=== PATIENT | female | born 1985 | race Two or more races ===

== ENCOUNTER 2017-01-10 16:30 | Outpatient (CLI) ==
[2013-11-15 09:06] VITALS: BMI 22.3
== END 2017-01-10 16:31 | disposition home or self-care (01) ==
LOC: LAB 16:30
PROVIDERS: ATTEND Internal Medicine Hematology & Oncology
DX: Z00.5 Encounter for examination of potential donor of organ and tissue (principal)
CPT/HCPCS: 36415

== ENCOUNTER 2017-02-03 16:30 | Outpatient (CLI) ==
[2013-11-15 09:06] VITALS: BMI 22.3
== END 2017-02-03 16:31 | disposition home or self-care (01) ==
LOC: LAB 16:30
DX: Z00.5 Encounter for examination of potential donor of organ and tissue (principal)
CPT/HCPCS: 36415

== ENCOUNTER 2017-12-24 11:24 | Emergency (ER) ==
[2017-12-24] MEDS ORDERED: BOOSTRIX IM ONE (11:41)
[2017-12-24 12:19] VITALS: BP 109/72; TEMP 97.8; BMI 24.0
--- NOTE | 2017-12-24 12:25 | ED.PDOC ---
General ED Provider: Dr. BINH FUENTES Chief Complaint: Finger Pain/Injury Stated Complaint: Reports that she smashed ther right thumb on the door at work. Had some minimal bleeding which has stopped . She is still able to move the finger. Time Seen by Physician: 11:45 Mode of Arrival: Walk-In Information Source: Patient Exam Limitations: No limitations Nursing and Triage Documentation Reviewed and Agree: Yes Does patient meet sepsis criteria?: No System Inflammatory Response Syndrome: Not Applicable Sepsis Protocol: For patient's 13 years and over: Temp is 96.8 and below OR 101 and greater Pulse >90 BPM Resp >20/minute Acutely Altered Mental Status Are patient's symptoms suggestive of a new infection, such as: -Pneumonia -Skin, Soft Tissue -Endocarditis -UTI -Bone, Joint Infection -Implantable Device -Acute Abdominal Infection -Wound Infection -Meningitis -Blood Stream Catheter Infection -Unknown Review of Systems - Review Of Systems Constitutional: Reports: No symptoms Eyes: Reports: No symptoms Ears, Nose, Mouth, Throat: Reports: No symptoms Respiratory: Reports: No symptoms Cardiac: Reports: No symptoms GI: Reports: No symptoms : Reports: No symptoms Musculoskeletal: Reports: Joint pain (Finger pain right Thumb ) Skin: Reports: No symptoms Neurological: Reports: No symptoms Endocrine: Reports: No symptoms Hematologic/Lymphatic: Reports: No symptoms All Other Systems: Reviewed and Negative Past Medical History - Past Medical History Previously Healthy: Yes Endocrine: Reports: None Cardiovascular: Reports: None Respiratory: Reports: None Hematological: Reports: None Gastrointestinal: Reports: None Genitourinary: Reports: None Neuro/Psych: Reports: None Musculoskeletal: Reports: None Cancer: Reports: None Last Menstrual Period: first of december - Surgical History General Surgical History: Reports: Unknown - Family History Family History: Reports: Unknown - Social History Smoking Status: Current some day smoker, Light tobacco smoker Hx Substance Use: No Alcohol Screening: None - Immunizations Tetanus Shot up to Date: No Physical Exam - Physical Exam Appearance: Well-appearing Pain Distress: Mild Musculoskeletal: ROM intact Skin: Warm, Dry Neurological: Sensation intact, Motor intact Interpretation - Radiology Interpretation Radiology Interpretation By: ED Physician Radiology Results: Negative Exam Interpreted: Other (Right thumb) Critical Care Note - Critical Care Note Total Time (mins): 0 Course - Course Orders, Labs, Meds: Orders Category Date Time Status Wound care [ED WOUND CARE] .ONCE EMERGENCY 12/24/17 11:42 Active Diphth,Pertuss(Acell),Tet Vac [Boostrix] MEDS 12/24/17 11:41 Discontinued 0.5 ml IM .ONCE ONE FINGER(S) RIGHT MIN 2V Stat RADS 12/24/17 11:42 Completed Medications Discontinued Medications Generic Name Dose Route Start Last Admin Trade Name Freq PRN Reason Stop Dose Admin Diphtheria/Pertussis/Tetanus Vacc 0.5 ml 12/24/17 11:41 12/24/17 12:23 Boostrix IM 12/24/17 11:42 0.5 ml .ONCE ONE Administration Vital Signs: Temp Pulse Resp BP Pulse Ox 12/24/17 12:15 97.8 F 62 18 109/72 99 Departure - Departure Time of Disposition: 12:24 Disposition: HOME SELF-CARE Discharge Problem: Injury of finger Instructions: Tetanus Immune Globulin (By injection), Jammed Finger (ED), Crush Injury (ED) Condition: Stable Pt referred to PMD for follow-up: Yes IPMP verified?: No Additional Instructions: Keep area clean and dry Apply Antibiotic cream to the wound Keep it covered. Allergies/Adverse Reactions: Allergies No Known Allergies Allergy (Verified 12/24/17 12:20) Home Medications: Ambulatory Orders 1 [No Reported Medications] 09/23/13 Disposition Discussed With: Patient
--- NOTE | 2017-12-24 13:36 | DI ---
Exam: Three views of the right fingers. Comparison: None available. Reason for exam: Right thumb trauma. FINDINGS: No acute fracture or dislocation. The cortices are intact. The joint spaces well [place] kyra. No unexplained calcific soft tissue density or radiopaque retained foreign body. Impression: No acute fracture or dislocation in the right thumb
== END 2017-12-24 12:48 | disposition home or self-care (01) ==
LOC: ED 11:24
DX: S69.91XA Unspecified injury of right wrist, hand and finger(s), initial encounter (principal); W23.0XXA Caught, crushed, jammed, or pinched between moving objects, initial encounter; F17.210 Nicotine dependence, cigarettes, uncomplicated
CPT/HCPCS: 90471; 90715; 99283

== ENCOUNTER 2018-08-18 19:46 | Emergency (ER) | payer OTHER ==
[2018-08-18 19:53] VITALS: BP 118/77; TEMP 99.6; BMI 24.8
[2018-08-18] MEDS ORDERED: MORPHINE 2 MG/ML SYRINGE IM STA ×2 (19:59→21:00)
[2018-08-18] MEDS ORDERED: PHENERGAN 25 MG/ML VIAL IM STA (19:59)
[2018-08-18] MEDS ORDERED: GI COCKTAIL PO STA (20:00)
--- NOTE | 2018-08-18 21:04 | CT ---
EXAM: CT scan abdomen pelvis without contrast HISTORY: Upper abdominal pain COMPARISON: None. FINDINGS: Tenuous axial images obtained through the abdomen pelvis without contrast utilizing 3-mm c ollimation. Sagittal and coronal reconstructions were imaged and reviewed.. Visualized lung base ar e clear. The gallbladder is fluid filled without high lithiasis. The liver, pancreas, spleen and ad renal glands have normal unenhanced CT appearance. The kidneys are morphologically normal. There is a right adnexal cyst measuring 3.7 x 3.0 cm. There is a small amount of free fluid in the dependent pelvis. There is no CT evidence of appendicitis. There is a small fat-containing umbilical hernia.. Bone windows reveals no evidence of lytic or blastic lesions. IMPRESSION: No acute intra-abdominal findings. Right adnexal cyst with small amount free fluid.
[2018-08-18] MEDS ORDERED: MORPHINE 2 MG/ML SYRINGE ONE (21:13)
--- NOTE | 2018-08-18 21:33 | ED.PDOC ---
General ED Provider: Dr. NATALIE DEUTSCH-ER Chief Complaint: Abdominal Pain Stated Complaint: im hurting Time Seen by Physician: 19:50 Mode of Arrival: Walk-In Information Source: Patient Exam Limitations: No limitations Nursing and Triage Documentation Reviewed and Agree: Yes Does patient meet sepsis criteria?: No System Inflammatory Response Syndrome: Not Applicable Sepsis Protocol: For patient's 13 years and over: Temp is 96.8 and below OR 101 and greater Pulse >90 BPM Resp >20/minute Acutely Altered Mental Status Are patient's symptoms suggestive of a new infection, such as: -Pneumonia -Skin, Soft Tissue -Endocarditis -UTI -Bone, Joint Infection -Implantable Device -Acute Abdominal Infection -Wound Infection -Meningitis -Blood Stream Catheter Infection -Unknown GI Complaint Exam - Abdominal Pain Complaint/Exam Onset: Gradual Duration: 8hrs Symptoms Are: Still present Timing: Constant Initial Severity: Mild Current Severity: Moderate Location of Pain: Discrete, Epigastric Character: Reports: Dull, Aching Alleviating: Reports: None Associated Signs and Symptoms: Denies: Diaphoresis, Fever, Cough, Chest pain, Dizziness, Back pain, Constipation, Blood in stool, Dysuria, Urinary frequency, Decreased urine output, Decreased appetite, Vaginal bleeding, Vaginal discharge , Nausea, Vomiting, Diarrhea, Sore throat, Decreased activity Patient Rh Status: Unknown Abdominal Findings: Present: None Differential Diagnoses: Pancreatitis Quality Indicator For Non-Traumatic Chest Pain/Syncope: EKG Performed Review of Systems - Review Of Systems Constitutional: Reports: No symptoms Eyes: Reports: No symptoms Ears, Nose, Mouth, Throat: Reports: No symptoms Respiratory: Reports: No symptoms Cardiac: Reports: No symptoms GI: Reports: Abdominal pain, Nausea : Reports: No symptoms Musculoskeletal: Reports: No symptoms Skin: Reports: No symptoms Neurological: Reports: No symptoms Endocrine: Reports: No symptoms Hematologic/Lymphatic: Reports: No symptoms All Other Systems: Reviewed and Negative Past Medical History - Past Medical History Previously Healthy: Yes Endocrine: Reports: None Cardiovascular: Reports: None Respiratory: Reports: None Hematological: Reports: None Gastrointestinal: Reports: None Genitourinary: Reports: None Neuro/Psych: Reports: None Musculoskeletal: Reports: None Cancer: Reports: None Last Menstrual Period: end july - Surgical History General Surgical History: Reports: Unknown - Family History Family History: Reports: Unknown - Social History Smoking Status: Current some day smoker, Light tobacco smoker Hx Substance Use: No Alcohol Screening: None Physical Exam - Physical Exam Appearance: Well-appearing, No pain distress, Well-nourished Eyes: HALLIE ENT: Ears normal, Nose normal, Oropharynx normal Neck: Supple Respiratory: Airway patent, Breath sounds clear, Breath sounds equal, Respirations nonlabored Cardiovascular: RRR, Pulses normal, No rub, No murmur GI/: Soft, No masses, Bowel sounds normal, No Organomegaly, Tender Musculoskeletal: Normal strength Skin: Warm Neurological: Sensation intact, Motor intact, Reflexes intact, Cranial nerves intact, Alert, Oriented Psychiatric: Affect appropriate, Mood appropriate Interpretation - Radiology Interpretation Radiology Interpretation By: Radiologist Radiology Results: Negative Exam Interpreted: CT Scan - EKG Interpretation Time of EKG #1: 21:33 Rate: Tachy Rhythm: Sinus Ectopy: None Murphy: NL ST Segment: Normal Interpretation: nsr Re-Evaluation - Re-Evaluation Time of Re-Evaluation: 21:48 Status: Improved Vital Signs Stable: Yes Pain Level: 0 Appearance: NAD Lungs: Clear Skin: Warm and Dry Neuro: Alert and Oriented X3 CV: RRR Critical Care Note - Critical Care Note Total Time (mins): 0 Course - Course Hematology/Chemistry: 08/18/18 20:05 08/18/18 20:05 Orders, Labs, Meds: Lab Review 08/18/18 08/18/18 08/18/18 20:05 20:05 20:05 WBC 21.27 H RBC 4.28 Hgb 12.7 Hct 36.8 L MCV 86.0 MCH 29.7 MCHC 34.5 RDW Coeff of Taylor 12.3 Plt Count 260 Immature Gran % (Auto) 0.4 Neut % (Auto) 80.5 Lymph % (Auto) 12.6 Delta % (Auto) 6.2 Eos % (Auto) 0.1 Baso % (Auto) 0.2 Immature Gran # (Auto) 0.1 Neut # (Auto) 17.1 H Lymph # (Auto) 2.7 Delta # (Auto) 1.3 Eos # (Auto) 0.0 Baso # (Auto) 0.1 ESR 20 Sodium 138.6 Potassium 3.69 Chloride 102.7 Carbon Dioxide 22.4 Anion Gap 17.19 BUN 9.5 Creatinine 0.37 L Estimated GFR (MDRD) 204.00 BUN/Creatinine Ratio 25.67 Glucose 87.5 Calcium 9.92 Total Bilirubin 0.97 AST 26.3 ALT 23.4 Alkaline Phosphatase 95.1 Total Creatine Kinase 41.6 Troponin I < 0.012 Total Protein 7.30 Albumin 4.15 Globulin 3.15 Albumin/Globulin Ratio 1.31 Amylase 33.4 Lipase 83.4 Serum , Qual Negative Urine Color Urine Clarity Urine pH Ur Specific [place] Urine Protein Urine Glucose (UA) Urine Ketones Urine Blood Urine Nitrite Urine Bilirubin Urine Urobilinogen Ur Leukocyte Esterase Urine Microscopic RBC Urine Microscopic WBC Ur Squamous Epith Cells Urine Bacteria Urine Mucus 08/18/18 21:25 WBC RBC Hgb Hct MCV MCH MCHC RDW Coeff of Taylor Plt Count Immature Gran % (Auto) Neut % (Auto) Lymph % (Auto) Delta % (Auto) Eos % (Auto) Baso % (Auto) Immature Gran # (Auto) Neut # (Auto) Lymph # (Auto) Delta # (Auto) Eos # (Auto) Baso # (Auto) ESR Sodium Potassium Chloride Carbon Dioxide Anion Gap BUN Creatinine Estimated GFR (MDRD) BUN/Creatinine Ratio Glucose Calcium Total Bilirubin AST ALT Alkaline Phosphatase Total Creatine Kinase Troponin I Total Protein Albumin Globulin Albumin/Globulin Ratio Amylase Lipase Serum , Qual Urine Color Yellow Urine Clarity Cloudy Urine pH 5.5 Ur Specific [place] >=1.030 Urine Protein Negative Urine Glucose (UA) Negative Urine Ketones 4+ Urine Blood 2+ Urine Nitrite Negative Urine Bilirubin Negative Urine Urobilinogen 0.2 Ur Leukocyte Esterase Negative Urine Microscopic RBC 5-10 Urine Microscopic WBC 2-5 Ur Squamous Epith Cells 2-5 Urine Bacteria Trace Urine Mucus 2+ Orders Category Date Time Status EKG-(ED ONLY) Stat CARDIO 08/18/18 19:57 Completed AMYLASE Stat LAB 08/18/18 20:05 Completed CBC W/ AUTO DIFF Stat LAB 08/18/18 20:05 Completed COMPREHENSIVE METABOLIC PANEL Stat LAB 08/18/18 20:05 Completed CREATINE KINASE Stat LAB 08/18/18 20:05 Completed ESR Stat LAB 08/18/18 20:05 Completed LIPASE Stat LAB 08/18/18 20:05 Completed SERUM Stat LAB 08/18/18 20:05 Completed TROPONIN I Stat LAB 08/18/18 20:05 Completed URINALYSIS C & S IF INDICATED Stat LAB 08/18/18 21:25 Completed Mag-Al Plus//Lidocaine [Gi Cocktail] MEDS 08/18/18 20:00 Discontinued 30 ml PO ONCE STA Morphine Sulfate [Morphine 2 mg/ml Syringe] MEDS 08/18/18 21:13 Discontinued 2 mg .ROUTE .STK-MED ONE Morphine Sulfate [Morphine 2 mg/ml Syringe] MEDS 08/18/18 19:59 Discontinued 4 mg IM ONCE STA Promethazine HCl [Phenergan 25 mg/ml Vial] MEDS 08/18/18 19:59 Discontinued 25 mg IM ONCE STA CT ABDOMEN/PELVIS WO CONTRAST Stat RADS 08/18/18 20:01 Completed Medications Discontinued Medications Generic Name Dose Route Start Last Admin Trade Name Doni PRN Reason Stop Dose Admin Al Hydroxide/Mg Hydroxide 30 ml 08/18/18 20:00 08/18/18 20:27 Gi Cocktail PO 08/18/18 20:01 30 ml ONCE STA Administration Morphine Sulfate 4 mg 08/18/18 19:59 08/18/18 20:26 Morphine 2 Mg/Ml Syringe IM 08/18/18 20:00 2 mg ONCE STA Administration Promethazine HCl 25 mg 08/18/18 19:59 08/18/18 20:25 Phenergan 25 Mg/Ml Vial IM 08/18/18 20:00 25 mg ONCE STA Administration Vital Signs: Temp Pulse Resp BP Pulse Ox 08/18/18 19:47 99.6 F 127 H 20 118/77 98 Departure - Departure Time of Disposition: 21:48 Disposition: HOME SELF-CARE Discharge Problem: Abdominal pain Instructions: Acute Abdominal Pain (ED) Condition: Good Pt referred to PMD for follow-up: Yes IPMP verified?: No Additional Instructions: low fat diet---bentyl 10mg qid prn pain#288---zantac 150mg #30---f/u [facility] ---consider outpatient gb xrayss Allergies/Adverse Reactions: Allergies No Known Allergies Allergy (Verified 08/18/18 19:53) Home Medications: Ambulatory Orders 1 [No Reported Medications] 09/23/13 Disposition Discussed With: Patient
== END 2018-08-18 21:55 | disposition home or self-care (01) ==
LOC: ED 19:46
DX: R10.9 Unspecified abdominal pain (principal); F17.210 Nicotine dependence, cigarettes, uncomplicated
CPT/HCPCS: 36415; 80053; 81001; 82150; 82550; 83690; 84484; 84703; 85025; 85651; 93005; 93010; 96372; 99283

== ENCOUNTER 2018-08-23 16:23 | Outpatient (CLI) | END 2018-08-23 16:24 | disposition home or self-care (01) | LOC: CAR 16:23 | PROVIDERS: ATTEND Nurse Practitioner Family | DX: R00.2 Palpitations (principal); E05.90 Thyrotoxicosis, unspecified without thyrotoxic crisis or storm; R10.13 Epigastric pain; R68.89 Other general symptoms and signs; G25.2 Other specified forms of tremor; R82.4 Acetonuria | CPT/HCPCS: 36415; 80053; 80306; 81001; 81025; 83735; 83970; 84439; 84443; 84480; 85025; 85651; 93005; 93010 ==

== ENCOUNTER 2018-08-23 16:25 | Outpatient (CLI) ==
[2018-08-23 16:51] LABS: URINE PREGNANCY TEST NEGATIVE (NEGATIVE)
== END 2018-08-23 16:26 | disposition home or self-care (01) ==
LOC: RHC-LAB 16:25 → FCC-LAB 16:26
PROVIDERS: ATTEND Nurse Practitioner Family
DX: E05.90 Thyrotoxicosis, unspecified without thyrotoxic crisis or storm (principal); R00.2 Palpitations; R10.13 Epigastric pain; R68.89 Other general symptoms and signs; G25.2 Other specified forms of tremor; R82.4 Acetonuria
CPT/HCPCS: 36415; 80053; 80306; 81001; 81025; 83735; 83970; 84439; 84443; 84480; 85025; 85651

== ENCOUNTER 2018-10-11 10:31 | Outpatient (CLI) ==
--- NOTE | 2018-10-11 11:06 | US ---
EXAM: Thyroid ultrasound History: Thyrotoxicosis Technique: Multiple sonographic images through the thyroid gland were obtained. Color duplex Dopple r was used to interrogate vascular flow. Findings: The right lobe of the thyroid measures 5.6 cm x 7.3 cm x 1.9 cm and demonstrates heterogeneous echote xture without discrete nodule identified. The thyroid isthmus measures 0.5 cm in thickness. The left lobe of the thyroid measures 6.3 cm x 2.0 cm x 1.8 cm and demonstrates heterogeneous echotex ture without discrete nodule identified. No extrathyroidal masses are identified. There is marked increased vascularity of the thyroid gland. Impression: 1. Enlarged heterogeneous thyroid gland with marked hypervascularity. Differential diagnosis includ es thyroiditis or Graves disease. 2. No discrete thyroid nodules
== END 2018-10-11 10:32 | disposition home or self-care (01) ==
LOC: RAD 10:31
PROVIDERS: ATTEND Nurse Practitioner
DX: E05.00 Thyrotoxicosis with diffuse goiter without thyrotoxic crisis or storm (principal)

== ENCOUNTER 2018-11-15 15:30 | Outpatient (CLI) | END 2018-11-15 15:31 | disposition home or self-care (01) | LOC: LAB 15:30 | PROVIDERS: ATTEND Nurse Practitioner | DX: E05.00 Thyrotoxicosis with diffuse goiter without thyrotoxic crisis or storm (principal) | CPT/HCPCS: 36415; 84439; 84443; 84480; 86376 ==

== ENCOUNTER 2019-01-29 19:40 | Emergency (ER) ==
[2019-01-29 19:43] VITALS: BP 128/72; TEMP 98.9; BMI 27.6
[2019-01-29] MEDS ORDERED: PROTONIX IV IVP STA (19:46)
[2019-01-29] MEDS ORDERED: LACTATED RINGERS 1,000 ML IV STA (19:46)
[2019-01-29] MEDS ORDERED: ZOFRAN 4 MG/2 ML IVP STA (19:47)
[2019-01-29] MEDS ORDERED: MORPHINE 4 MG/ML SYRINGE IVP STA (19:58)
--- NOTE | 2019-01-29 20:28 | ED.PDOC ---
General ED Provider: Dr. BINH FUENTES Chief Complaint: Abdominal Pain Stated Complaint: Patient is a 33 year old female who comes to the ER with right abdominal pain that started at 230 pm 2 hours after she had eaten. States that the pain is aching and pressure like. Rates it at 7/10 with associated nausea but no vomiting. Denies any fever or chills. Has a histor of ovarian cyst on the right diagnosed in jul 2018 Time Seen by Physician: 20:00 Mode of Arrival: Walk-In Information Source: Patient Exam Limitations: No limitations Primary Care Provider: MAI WOODY Nursing and Triage Documentation Reviewed and Agree: Yes Does patient meet sepsis criteria?: No System Inflammatory Response Syndrome: Not Applicable Sepsis Protocol: For patient's 13 years and over: Temp is 96.8 and below OR 101 and greater Pulse >90 BPM Resp >20/minute Acutely Altered Mental Status Are patient's symptoms suggestive of a new infection, such as: -Pneumonia -Skin, Soft Tissue -Endocarditis -UTI -Bone, Joint Infection -Implantable Device -Acute Abdominal Infection -Wound Infection -Meningitis -Blood Stream Catheter Infection -Unknown GI Complaint Exam - Abdominal Pain Complaint/Exam Onset: Sudden Duration: 5 hours Symptoms Are: Still present Timing: Constant Initial Severity: Moderate Current Severity: Severe Location of Pain: RUQ, RLQ Radiates To: Denies: Chest, Back, Flank, LLQ, RLQ, Inguinal Character: Reports: Aching Aggravating: Reports: Movement, Food Alleviating: Reports: None Associated Signs and Symptoms: Reports: Nausea. Denies: Diaphoresis, Fever, Cough, Chest pain, Dizziness, Back pain, Constipation, Blood in stool, Dysuria, Urinary frequency, Decreased urine output, Decreased appetite, Vaginal bleeding , Vaginal discharge, Vomiting, Diarrhea, Sore throat, Decreased activity AAA Risk Factors: Reports: None Cardiac Risk Factors: Reports: None Ectopic Risk Factors: Reports: None Ovarian Torsion Risk Factors: Reports: Ovarian cysts Surgical Obstruction Risk Factors: Reports: Colicky abdominal pain Related Surgical History: Reports: None Patient Rh Status: Unknown Abdominal Findings: Present: Other (severe Tenderness to the right lower quadrant ) Differential Diagnoses: Appendicitis, Constipation, UTI, Ovarian Cyst Review of Systems - Review Of Systems Constitutional: Reports: No symptoms Eyes: Reports: No symptoms Respiratory: Reports: No symptoms Cardiac: Reports: No symptoms GI: Reports: Abdominal pain, Nausea : Reports: No symptoms Musculoskeletal: Reports: No symptoms Skin: Reports: No symptoms Neurological: Reports: Anxiety All Other Systems: Reviewed and Negative Past Medical History - Past Medical History Previously Healthy: Yes Endocrine: Reports: Hyperthyroid Cardiovascular: Reports: None Respiratory: Reports: None Hematological: Reports: None Gastrointestinal: Reports: None Genitourinary: Reports: Other (Right Ovarian cyst with some fluid 08/2018 ) Neuro/Psych: Reports: None Musculoskeletal: Reports: None Cancer: Reports: None Last Menstrual Period: 01/01/19 - Surgical History General Surgical History: Reports: None - Family History Family History: Reports: Other (renal stones in brother. ) - Social History Smoking Status: Current some day smoker, Light tobacco smoker Hx Substance Use: No Alcohol Screening: None - Immunizations Tetanus Shot up to Date: Yes (within 5 years ) Physical Exam - Physical Exam Appearance: Ill-appearing Ill-appearing: Moderate Pain Distress: Severe Neck: Supple Respiratory: Airway patent Cardiovascular: RRR GI/: Soft, Tender Musculoskeletal: Normal strength, ROM intact, No edema, No calf tenderness Skin: Warm, Dry, Normal color Neurological: Sensation intact, Motor intact, Cranial nerves intact, Alert, Oriented Psychiatric: Anxious Interpretation - Radiology Interpretation Radiology Interpretation By: Radiologist Radiology Results: Negative (except non obstructing stones.) Exam Interpreted: CT Scan Critical Care Note - Critical Care Note Total Time (mins): 30 Course - Course Hematology/Chemistry: 01/29/19 19:58 01/29/19 19:58 Orders, Labs, Meds: Lab Review 01/29/19 01/29/19 01/29/19 19:58 19:58 20:00 WBC 18.56 H RBC 4.19 L Hgb 13.6 Hct 39.4 MCV 94.0 MCH 32.5 H MCHC 34.5 RDW Coeff of Taylor 11.9 Plt Count 297 Immature Gran % (Auto) 0.4 Neut % (Auto) 73.8 Lymph % (Auto) 19.3 [place] % (Auto) 5.0 Eos % (Auto) 1.2 Baso % (Auto) 0.3 Immature Gran # (Auto) 0.1 Neut # (Auto) 13.7 H Lymph # (Auto) 3.6 H [place] # (Auto) 0.9 Eos # (Auto) 0.2 Baso # (Auto) 0.1 Sodium 139.1 Potassium 3.58 Chloride 104.9 Carbon Dioxide 22.8 Anion Gap 14.98 BUN 17.2 H Creatinine 0.67 Estimated GFR (MDRD) 103.00 BUN/Creatinine Ratio 25.67 Glucose 87.1 Calcium 9.24 Total Bilirubin 0.49 AST 21.5 ALT 13.9 Alkaline Phosphatase 90.3 Total Protein 7.73 Albumin 4.53 Globulin 3.20 Albumin/Globulin Ratio 1.41 Amylase 66.7 Lipase 108.6 TSH Free T4 Serum , Qual Negative Urine Color Urine Clarity Urine pH Ur Specific [place] Urine Protein Urine Glucose (UA) Urine Ketones Urine Blood Urine Nitrite Urine Bilirubin Urine Urobilinogen Ur Leukocyte Esterase Urine Microscopic RBC Ur Squamous Epith Cells Urine Bacteria 01/29/19 01/29/19 01/29/19 20:00 20:00 21:26 WBC RBC Hgb Hct MCV MCH MCHC RDW Coeff of Taylor Plt Count Immature Gran % (Auto) Neut % (Auto) Lymph % (Auto) [place] % (Auto) Eos % (Auto) Baso % (Auto) Immature Gran # (Auto) Neut # (Auto) Lymph # (Auto) [place] # (Auto) Eos # (Auto) Baso # (Auto) Sodium Potassium Chloride Carbon Dioxide Anion Gap BUN Creatinine Estimated GFR (MDRD) BUN/Creatinine Ratio Glucose Calcium Total Bilirubin AST ALT Alkaline Phosphatase Total Protein Albumin Globulin Albumin/Globulin Ratio Amylase Lipase TSH 0.016 L Free T4 0.96 Serum , Qual Urine Color Yellow Urine Clarity Slightly Urine pH 5.5 Ur Specific [place] >=1.030 Urine Protein Negative Urine Glucose (UA) Negative Urine Ketones 2+ Urine Blood 1+ Urine Nitrite Negative Urine Bilirubin Negative Urine Urobilinogen 0.2 Ur Leukocyte Esterase Negative Urine Microscopic RBC 5-10 Ur Squamous Epith Cells 2-5 Urine Bacteria Trace Orders Category Date Time Status NPO REMINDER: IMAGING ONCE CARE 01/29/19 21:05 Completed ED IV/MEDIPORT/POWERPORT .ONCE EMERGENCY 01/29/19 19:46 Active AMYLASE Stat LAB 01/29/19 19:58 Completed CBC W/ AUTO DIFF Stat LAB 01/29/19 19:58 Completed COMPREHENSIVE METABOLIC PANEL Stat LAB 01/29/19 19:58 Completed FREE T4 (FREE THYROXINE) Stat LAB 01/29/19 20:00 Completed HCG QUALITATIVE [SERUM ] Stat LAB 01/29/19 20:00 Completed LIPASE Stat LAB 01/29/19 19:58 Completed THYROID STIMULATING HORMONE Stat LAB 01/29/19 20:00 Completed URINALYSIS C & S IF INDICATED Stat LAB 01/29/19 21:26 Completed 0.9 % Sodium Chloride [Saline Flush] MEDS 01/29/19 19:46 Discontinued 1 syr IVF PRN PRN Ed After Hour Supply Med [Ed After Hours Supply Med MEDS 01/29/19 22:30 Discontinued Sent Home] 1 each PO ONCE ONE Morphine Sulfate [Morphine 4 mg/ml Syringe] MEDS 01/29/19 19:58 Discontinued 4 mg IVP ONCE STA Ondansetron HCl/Pf [Zofran 4 mg/2 ml] MEDS 01/29/19 19:47 Discontinued 4 mg IVP ONCE STA Pantoprazole Sodium [Protonix IV] MEDS 01/29/19 19:46 Discontinued 40 mg IVP ONCE STA Ringers Lactated Solution [Lactated Ringers] 1,000 ml MEDS 01/29/19 19:46 Discontinued IV BOLUS Tramadol HCl [Ultram] MEDS 01/29/19 22:37 Discontinued 100 mg .ROUTE .K-MED ONE CT ABDOMEN/PELVIS W CONTRAST Stat RADS 01/29/19 21:02 Completed Medications Discontinued Medications Generic Name Dose Route Start Last Admin Trade Name Freq PRN Reason Stop Dose Admin Lactated Ringer's 1,000 mls @ 1,000 mls/hr 01/29/19 19:46 01/29/19 20:00 Lactated Ringers IV 01/29/19 20:45 1,000 mls/hr BOLUS STA Administration Miscellaneous Information 1 each 01/29/19 22:30 01/29/19 22:40 Ed After Hours Supply Med Sent Home PO 01/29/19 22:31 1 each ONCE ONE Administration Protocol Morphine Sulfate 4 mg 01/29/19 19:58 01/29/19 20:10 Morphine 4 Mg/Ml Syringe IVP 01/29/19 19:59 4 mg ONCE STA Administration Ondansetron HCl 4 mg 01/29/19 19:47 01/29/19 20:10 Zofran 4 Mg/2 Ml IVP 01/29/19 19:48 4 mg ONCE STA Administration Pantoprazole Sodium 40 mg 01/29/19 19:46 01/29/19 20:10 Protonix Iv IVP 01/29/19 19:47 40 mg ONCE STA Administration Sodium Chloride 1 syr 01/29/19 19:46 01/29/19 20:10 Saline Flush IVF 1 syr PRN PRN Administration To flush IV Vital Signs: Temp Pulse Resp BP Pulse Ox 01/29/19 19:40 98.9 F 93 H 18 128/72 98 Departure - Departure Time of Disposition: 22:45 Disposition: HOME SELF-CARE Discharge Problem: Abdominal pain Instructions: Abdominal Pain (ED) Condition: Fair Pt referred to PMD for follow-up: Yes IPMP verified?: No Additional Instructions: Follow up with PCP for an US of your abdomen and pelvis Take Medications as prescribed. Prescriptions: Ondansetron [Zofran Odt] 4 mg PO Q8H #20 tab.rapdis Tramadol HCl [Ultram] 50 mg PO Q6H PRN #14 tablet PRN Reason: Severe Pain Allergies/Adverse Reactions: Allergies No Known Allergies Allergy (Verified 01/29/19 19:43) Home Medications: Ambulatory Orders Methimazole 10 mg PO BID 01/29/19 Ondansetron [Zofran Odt] 4 mg PO Q8H #20 tab.rapdis 01/29/19 Tramadol HCl [Ultram] 50 mg PO Q6H PRN #14 tablet 01/29/19 Disposition Discussed With: Patient
--- NOTE | 2019-01-29 21:57 | CT ---
EXAM: CT scan of the abdomen and pelvis with contrast HISTORY: Right lower quadrant pain, leukocytosis TECHNIQUE: Helical imaging of the abdomen pelvis was performed following the intravenous administrat ion of contrast. 3 mm thin axial images and coronal and sagittal reconstructions were provided for i nterpretation. Comparison 08/18/2018 CT scan of the abdomen pelvis. FINDINGS: The liver, spleen, pancreas, adrenal glands and kidneys appear normal. The proximal urete rs are normal size. Small nonobstructing calculi are seen within the calyces of the kidneys. The sm all and large bowel loops are normal caliber. No retroperitoneal abnormalities are seen. There is a normal appearance of the appendix. There is a small amount of free fluid seen within the pelvis. The helical images obtained through the pelvis demonstrate a normal appearance of the rectum, urinary bladder. There is a small amount of free fluid seen within the pelvis. Lung bases are clear. No l ytic or blastic lesions are seen within the osseous structures. IMPRESSION: There is no bowel obstruction or acute inflammatory change seen within the abdomen and p trell. There is no ureteral obstruction. Nonobstructing nephrolithiasis seen within the kidneys.
[2019-01-29] MEDS ORDERED: ED AFTER HOURS SUPPLY MED SENT HOME PO ONE (22:30)
[2019-01-29] MEDS ORDERED: ULTRAM ONE ×2 (22:37→22:41)
== END 2019-01-29 22:45 | disposition home or self-care (01) ==
LOC: ED 19:40
DX: R10.31 Right lower quadrant pain (principal); R10.11 Right upper quadrant pain; R11.0 Nausea; F17.210 Nicotine dependence, cigarettes, uncomplicated
CPT/HCPCS: 36415; 80053; 81001; 82150; 83690; 84439; 84443; 84703; 85025; 96360; 96375; 99283